=== PATIENT | female | born 1985 | race Caucasian/White ===

== ENCOUNTER → 2017-02-11 | Outpatient (CLI) | payer BC ==
[~2017-02-11] MED LIST: PRENTAB26 PO
--- NOTE | 2017-02-11 12:54 | DIAGNOSTIC IMAGING REPORT ---
LIMITED (US) CLINICAL HISTORY: CERVICAL LENGTH, THREATENED PRE MATURE LABOR,29 WKS COMPARISON STUDY: None. FINDINGS: Transabdominal and transvaginal scanning of the pelvis was performed. Slight funneling at the internal cervical os which is dilated up to 6 mm. The remaining cervical canal is closed and measures 3.6 cm in length. heart rate is 152 bpm. Femur length is 5.89 cm consistent with a 30 week and 5 day intrauterine gestation. There is anterior fundal placenta which appears unremarkable. No subchorionic hematoma. The amniotic fluid volume appears to be low. IMPRESSION: 1. heart rate is 152 bpm. 2. Slight funneling at the internal cervical os which is dilated up to 6 mm. However, the remaining cervical canal is closed and measures 3.6 cm in length. 3. There appears to be oligohydramnios. Electronically signed by: Mendoza Garrett M.D. 02/11/2017 12:52 PM Dictated Date/Time: 02/11/2017 12:49 PM
== END | disposition home or self-care (01) ==
LOC: C.ULTR 11:37
PROVIDERS: ATTEND Obstetrics & Gynecology
DX: O60.00 Preterm labor without delivery, unspecified trimester (principal)

== ENCOUNTER → 2017-04-01 | Outpatient (CLI) | payer BC | END | disposition home or self-care (01) | LOC: C.LABSPEC 16:53 | PROVIDERS: ATTEND Obstetrics & Gynecology | DX: Z34.83 Encounter for supervision of other normal pregnancy, third trimester (principal) ==

== ENCOUNTER 2017-04-15 10:55 | Inpatient (IN) | payer BC ==
[~2017-04-15] VITALS: Ht 149.9 cm; Wt 75.8 kg
[2017-04-15 11:36] VITALS: Ht 149.9 cm; Wt 75.8 kg
[2017-04-15] MEDS ORDERED: LACTATED RINGER'S 1000ML 1,000 ML IV PRN (12:02)
[2017-04-15] MEDS ORDERED: LACTATED RINGER'S 1000ML 1,000 ML IV SCH (12:02)
[2017-04-15] MEDS ORDERED: MISOPROSTOLTAB 50 MCG TAB PO ONE (12:15)
[2017-04-15 13:20] LABS: HEMATOCRIT 39.9 % (37-47); MEAN CELL VOLUME 86.6 fL (80-100); MEAN CORPUSCULAR HEMOGLOBIN 30.2 pg (25-34); MEAN CORPUSCULAR HGB CONC 34.8 g/dl (32-36); MEAN PLATELET VOLUME 13.1 fL (7.4-10.4); PLATELET COUNT 168 K/uL (130-400); RED BLOOD COUNT 4.61 M/uL (4.2-5.4); WHITE BLOOD COUNT 11.81 K/uL (4.8-10.8)
[2017-04-15] MEDS ORDERED: LACTATED RINGER'S 1000ML 500 ML IV PRN ×2 (18:07→21:09)
[2017-04-15] MEDS ORDERED: OXYTOCIN 30 UNITS/500ML NSS IV PRN (18:15)
[2017-04-15] MEDS ORDERED: BUPIVACAINE 0.25% 30 ML VIAL ONE (20:21)
[2017-04-15] MEDS ORDERED: EpHEDrine SULFATE INJ 50 MG/ML AMP ONE (20:21)
[2017-04-15] MEDS ORDERED: FENTANYL CITRATE INJ 50 MCG/1 ML 2 ML VIAL ONE (20:22)
[2017-04-15] MEDS ORDERED: FENTANYL 2MCG/ML ROPIV 1.25MG/ML 100ML BAG EPI ONE (20:22)
[2017-04-15] MEDS ORDERED: NALOXONE HCL INJ 1 MG in SODIUM CHLORIDE 0.9% 1000ML 1,000 ML IV PRN (21:09)
[2017-04-15] MEDS ORDERED: EpHEDrine SULFATE INJ 50 MG/ML AMP IV PRN (21:15)
[2017-04-15] MEDS ORDERED: NALOXONE HCL INJ 0.4 MG/1 ML VIAL/CARP IV PRN (21:15)
[2017-04-15] MEDS ORDERED: FENTANYL 2MCG/ML ROPIV 1.25MG/ML 100ML BAG EPI PRN (21:15)
[2017-04-15] MEDS ORDERED: ONDANSETRON INJ 2 MG/ML 2 ML VIAL IV PRN (21:15)
[2017-04-15] MEDS ORDERED: DiphenhydrAMINE HCL 50 MG/ML VIAL IV PRN (21:15)
[2017-04-15] MEDS ORDERED: NALBUPHINE HCL INJ 10 MG/ML AMP IV PRN (21:15)
[2017-04-16] VITALS (14 sets, daily range): BP systolic 125–152; BP diastolic 73–89; PULSE 89–111; TEMP 36.7–37.1; O2SAT 95–99
[2017-04-16] MEDS ORDERED: CITRIC ACID/SODIUM CITRATE 15 ML UDC ONE (02:18)
[2017-04-16] MEDS ORDERED: CITRIC ACID/SODIUM CITRATE 15 ML UDC PO STA (02:34)
[2017-04-16] MEDS ORDERED: CEFOXITIN IV 2,000 MG in DEXTROSE 5% 50ML 50 ML IV STA (02:34)
[2017-04-16] MEDS ORDERED: LIDOCAINE/EPINEPHRINE 2% 1:200,000 20 ML SDV ONE (02:47)
[2017-04-16] MEDS ORDERED: BUPIVACAINE 0.25% 30 ML VIAL ONE ×2 (02:47→02:50)
[2017-04-16] MEDS ORDERED: CHLOROPROCAINE HCL 3% 20 ML VIAL ONE (02:47)
[2017-04-16] MEDS ORDERED: OXYTOCIN INJ 10 UNITS/ML VIAL ONE ×2 (02:48→03:01)
[2017-04-16] MEDS ORDERED: MoRPHine SULFATE PF 1 MG/ML 10 ML AMP/VIAL ONE (02:48)
[2017-04-16] MEDS ORDERED: PHENYLEPHRINE 100MCG/ML 5ML SYR ONE ×2 (02:49→02:50)
[2017-04-16] MEDS ORDERED: SODIUM BICARBONATE 8.4% INJ 50 MEQ/50 ML VIAL ONE (02:50)
[2017-04-16] MEDS ORDERED: MEPERIDINE HCL 25 MG/ML CARP IV PRN (03:15)
[2017-04-16] MEDS ORDERED: DC INTRASPINAL MORPHINE PRN (03:15)
[2017-04-16] MEDS ORDERED: CONTINUE MEDICATION ONE (03:15)
[2017-04-16] MEDS ORDERED: MoRPHine SULFATE 2 MG/ML CARP IV PRN (03:15)
[2017-04-16] MEDS ORDERED: NO NARCOTICS OR SEDATIVES SCH (03:15)
[2017-04-16] MEDS ORDERED: MoRPHine SULFATE PF 1 MG/ML 10 ML AMP/VIAL EPI PRN (03:15)
[2017-04-16] MEDS ORDERED: MAGNESIUM HYDROXIDE SUSP 30 ML UDC PO PRN (03:45)
[2017-04-16] MEDS ORDERED: SENNA 8.6 MG TAB PO PRN (03:45)
[2017-04-16] MEDS ORDERED: HYDROCORTISONE ACETATE 25 MG SUPP PR PRN (03:45)
[2017-04-16] MEDS ORDERED: LANOLIN OINT EXT PRN ×2 (03:45)
[2017-04-16] MEDS ORDERED: SUPERCREAM 0.870 % 15GM JAR EXT PRN (03:45)
[2017-04-16] MEDS ORDERED: BENZOCAINE 20% AER SPR 82.5 GM CAN EXT PRN (03:45)
[2017-04-16] MEDS ORDERED: DIPHTHERIA/TETANUS/PERTUSSIS 0.5 ML SYR/VIAL IM. ONE (03:45)
--- NOTE | 2017-04-16 03:48 | Anesthesiology Progress Note ---
Anesthesia Post Op Note Date & Time April 16, 2017 at 03:49 Vital Signs Pain Intensity: 2.0 Notes Mental Status: alert / awake / arousable, participated in evaluation Pt Amnestic to Procedure: Yes Nausea / Vomiting: adequately controlled Pain: adequately controlled Airway Patency, RR, SpO2: stable & adequate BP & HR: stable & adequate Hydration State: stable & adequate Neuraxial Anesthesia: was administered, sensory block is resolving Anesthetic Complications: no major complications apparent
[2017-04-16] MEDS ORDERED: TERBUTALINE SULFATE 1 MG/ML VIAL ONE (04:01)
[2017-04-16] MEDS: OXYTOCIN INJ 20 UNITS in LACTATED RINGER'S 1000ML 1,000 ML IV SCH ×3 (04:08→21:10)
--- NOTE | 2017-04-16 04:11 | HISTORY & PHYSICAL EXAMINATION ---
DATE OF ADMISSION: 04/15/2017 CHIEF COMPLAINT: Toxemia of , nonreassuring heart rate tracing and arrest of labor. HISTORY OF PRESENT ILLNESS: The patient is a 31-year-old 2, para 1, general health is good. Due date for this is 04/29/2017. First , she went into spontaneous labor at 37 weeks, was in 2014. She had a boy, 5 pounds 12 ounces. Present has been complicated by the development of toxemia with sustained elevation of blood pressure and eventually development of proteinuria, been treated with bed rest, decreased activity and entered in her record. She has significant documentations of both systolic and diastolic over about a 10-day to 2-week period. Due to development of toxemia, she was admitted for induction of labor. She was brought in and given 50 mcg of Cytotec, had some contractions, eventually the contractions were augmented with IV Pitocin. She requested and received epidural anesthesia. The augmentation continued. She went to full dilatation; however, during this time, the head did not enter the pelvis, it remained high. After she went to full dilatation, we got her to push and with the first push or 2, she had a prolonged decel which required the use of terbutaline and mask oxygen and discontinuing the IV Pitocin to recover the heart rate. At this time, she was felt to have nonreassuring heart rate due to the cephalopelvic disproportion. PAST MEDICAL HISTORY: ALLERGIES: She has no known drug allergies. PAST SURGICAL HISTORY: She has a right ACL repair. MEDICAL HISTORY: No history of rheumatic fever, heart disease, heart murmur, diabetes or tuberculosis. She has a 2-year-old boy at home in good health. SOCIAL HISTORY: No smoking. No alcohol intake. Works for the school system. FAMILY HISTORY: Mom at age 51, lung cancer. Father 60, in good health. She has 2 sisters in good health. REVIEW OF SYSTEMS: HEAD: No symptoms of frequent or severe headaches. EYES: No symptoms of blurred vision, double vision. EARS: No symptoms of frequent ear infections, difficulty hearing. NOSE: No symptoms of frequent nosebleeds, difficulty breathing through her nose. THROAT: No symptoms of frequent or severe sore throat, difficulty swallowing. RESPIRATORY SYSTEM: No history of asthma, chest pain, shortness of breath. PHYSICAL EXAMINATION: GENERAL: Well-developed, well-nourished 31-year-old white female, alert and oriented x3 in intermittent episodes of discomfort. EYES: Conjunctivae are pink. Sclerae white. No evidence of jaundice. EARS: Had normal light reflex bilaterally. HEART: Regular rhythm. S1 and S2 are normal. LUNGS: Clear. ABDOMEN: Revealed term size fetus, estimated weight 7-8 pounds. PELVIC: Revealed a vertex presentation, large amount of molding about a -1 station. MUSCULOSKELETAL: Revealed no calf tenderness. IMPRESSIONS OF THIS CASE: Toxemia of , nonreassuring heart rate tracing and cephalopelvic disproportion.
[2017-04-16] MEDS: KETOROLAC TROMETHAMINE 30 MG/ML VIAL IV. PRN ×3 (05:39→19:45)
[2017-04-16] MEDS: DOCUSATE SODIUM 100 MG CAP PO SCH ×2 (08:00→19:46)
[2017-04-16] MEDS: FERROUS SULFATE 325 MG TAB PO SCH (08:00)
[2017-04-16] MEDS: PRENATAL VITAMIN TAB PO SCH (08:00)
[2017-04-16] MEDS: SIMETHICONE 80 MG CHEW PO SCH ×3 (08:53→19:46)
--- NOTE | 2017-04-16 09:36 | OPERATIVE REPORT ---
DATE OF OPERATION: 04/16/2017 PROCEDURE: Primary low segment section. INDICATIONS FOR SURGERY: Non-reassuring heart rate, toxemia, and cephalopelvic disproportion. POSTOPERATIVE DIAGNOSES: Same, nuchal cord x1 and direct occiput posterior. SURGEON: Dr. Plascencia. ENGRAVING SUPERVISOR: Dr. Johnson. ESTIMATED BLOOD LOSS: 600 mL. ANESTHESIA: Epidural. OPERATIVE FINDINGS AND PROCEDURE: The patient was brought to the OR table, correctly identified by armband and conversation. Man catheter had been inserted aseptically in the bladder and connected to gravity drainage. Compression stockings were applied. Lower abdomen was painted with an alcohol based sterilizing solution. The epidural was topped off. When the anesthesia level was found to be adequate, Pfannenstiel incision was made, carried down to the anterior fascia by sharp dissection. Hemostasis was secured by electrocauterization. Fascia was incised transversely, from the underlying muscle by blunt and sharp dissection. Recti muscles were in the midline exposing the peritoneum, which was carefully raised and entered. Incision was made above the vesicouterine fold. Bladder was advanced out of the operative field. Lower uterine segment was scored with a knife and then entered with scissors. Clear amniotic fluid was seen at this time. The infant's head was in direct OP and managed to pull him out through the incision, suctioned him through the mouth and the nose. Nuchal cord was reduced around the head. Shoulders were delivered without difficulty. Cord was clamped and cut. Cord blood was taken. Placenta was removed manually. Uterus was brought out through the incision and cleaned several times with a clean sponge. Ten units of Pitocin was injected into the uterus. The myometrium was approximated in 2 layers. The muscular layer was approximated with a continuous layer of chromic. Fascial layer was approximated over this with a continuous layer of Vicryl and three [id number] sutures of Vicryl were used on the approximated edges of the uterine defect to complete the hemostasis. Following this, peritoneal edges was restored with a running 3-0 chromic. The pelvis was cleansed of all blood clots and debris. Uterus, tubes, and ovaries were reinserted into the abdominal cavity. The peritoneum was closed with a mattress suture of chromic catgut. Recti muscles were approximated with interrupted [id number] suture of chromic catgut. The fascia was closed with continuous interlocking suture of Vicryl on each side, tied in the midline. Subcutaneous was approximated with plain and skin edges were approximated with staple clips. I attest to the content of the Intraoperative Record and any orders documented therein. Any exceptio ns are noted below.
[2017-04-16] MEDS ORDERED: DiphenhydrAMINE HCL 50 MG/ML VIAL IV PRN (20:00)
[2017-04-16] MEDS ORDERED: ZOLPIDEM TARTRATE 5 MG TAB PO PRN (21:00)
[2017-04-16] MEDS ORDERED: KETOROLAC TROMETHAMINE 30 MG/ML VIAL IV. PRN (21:00)
[2017-04-16] MEDS ORDERED: OXYCODONE/ACETAMINOPHEN 5-325 TAB PO PRN (21:00)
[2017-04-16] MEDS ORDERED: MEPERIDINE HCL 50 MG/ML CARP IV PRN ×2 (21:00)
[2017-04-16] MEDS ORDERED: ONDANSETRON INJ 2 MG/ML 2 ML VIAL IV PRN (21:00)
[2017-04-17] MEDS: IBUPROFEN 600 MG TAB PO PRN ×5 (00:16→20:53)
[2017-04-17] MEDS: OXYCODONE/ACETAMINOPHEN 5-325 TAB PO PRN ×5 (00:17→20:54)
[2017-04-17 07:32] VITALS: BP 117/77; PULSE 81; TEMP 36.6; O2SAT 99
[2017-04-17] MEDS: DOCUSATE SODIUM 100 MG CAP PO SCH ×2 (09:35→20:21)
[2017-04-17] MEDS: PRENATAL VITAMIN TAB PO SCH (09:35)
[2017-04-17] MEDS: SIMETHICONE 80 MG CHEW PO SCH ×4 (09:35→20:21)
[2017-04-17] MEDS: FERROUS SULFATE 325 MG TAB PO SCH (09:35)
--- NOTE | 2017-04-17 10:12 | Progress Note ---
Subjective April 17, 2017. Subjective conversation w/ patient Ambulation: ambulating normally Voiding: no voiding problems Passing Gas: Yes Diet Tolerance: Regular Diet Lochia: Small Feeding Type: Breast Feeding Review of Systems Constitutional: + fever Objective Vital Signs Date Time Temp Pulse Resp B/P Pulse Ox O2 Delivery O2 Flow Rate FiO2 04/17/17 08:39 Room Air 04/17/17 07:32 36.6 81 17 117/77 99 Room Air 04/16/17 23:50 Room Air 04/16/17 23:50 37.0 97 16 139/89 98 Room Air 04/16/17 19:50 18 97 04/16/17 19:50 Room Air 04/16/17 19:50 36.9 111 18 125/81 97 Room Air 04/16/17 17:00 16 97 04/16/17 16:00 97 Room Air 04/16/17 16:00 18 97 04/16/17 16:00 36.7 96 16 130/86 98 Room Air 04/16/17 15:00 16 98 04/16/17 14:00 18 98 04/16/17 13:00 16 97 04/16/17 12:00 18 97 04/16/17 12:00 36.9 89 18 126/80 97 Room Air 04/16/17 11:00 16 99 Physical Exam General Appearance: WELL-APPEARING Respiratory/Chest: lungs clear Abdomen: non tender, soft Fundus: Firm, Non-Tender Incision Description: Clean, Dry & Intact Extremities: no pedal edema, no calf tenderness Assessment and Plan Post-Op Day#: 1
[2017-04-17 16:00] VITALS: BP 142/79; PULSE 95; TEMP 36.7
[2017-04-17 17:00] VITALS: O2SAT 99
[2017-04-17] MEDS ORDERED: BISACODYL 5 MG TABEC PO ONE (22:00)
[2017-04-17 23:50] VITALS: BP 136/88; PULSE 92; TEMP 36.8
[2017-04-18] MEDS: IBUPROFEN 600 MG TAB PO PRN ×2 (02:47→09:36)
[2017-04-18] MEDS: OXYCODONE/ACETAMINOPHEN 5-325 TAB PO PRN ×2 (02:47→09:36)
[2017-04-18] MEDS ORDERED: BISACODYL 10 MG SUPP PR PRN (03:45)
[2017-04-18 06:39] LABS: HEMATOCRIT 30.2 % (37-47)
[2017-04-18 07:09] VITALS: BP 143/96; PULSE 78; TEMP 36.4; O2SAT 99
--- NOTE | 2017-04-18 08:49 | Progress Note ---
Subjective April 18, 2017. Subjective conversation w/ patient Ambulation: ambulating normally Voiding: no voiding problems Passing Gas: Yes Diet Tolerance: Regular Diet Lochia: Small Feeding Type: Breast Feeding Review of Systems Constitutional: + fever Objective Vital Signs Date Time Temp Pulse Resp B/P Pulse Ox O2 Delivery O2 Flow Rate FiO2 04/18/17 07:50 Room Air 04/18/17 07:09 36.4 78 18 143/96 99 Room Air 04/17/17 23:50 Room Air 04/17/17 23:50 36.8 92 18 136/88 Room Air 04/17/17 17:00 99 Room Air 04/17/17 16:00 36.7 95 16 142/79 Room Air Physical Exam General Appearance: WELL-APPEARING Abdomen: non tender Fundus: Firm, Non-Tender Incision Description: Clean, Dry & Intact Extremities: no pedal edema, no calf tenderness Laboratory Results Last 24 Hours Test 04/18/17 06:00 Hemoglobin 10.1 g/dL Hematocrit 30.2 % Assessment and Plan Post-Op Day#: 2
--- NOTE | 2017-04-18 08:52 | Discharge Instructions ---
Discharge Instructions Date of Service April 18, 2017. Admission Reason for Admission: Prolonged Monitoring - R/O h Discharge Discharge Diagnosis / Problem: cephalopelvic disproportion Discharge Goals Goal(s): Routine recovery after Activity Recommendations Activity Limitations: as noted below ACTIVITY RECOMMENDATIONS: * Gradual return to full activity over the next 2-3 weeks. * No lifting - nothing heavier than baby over the next 2-3 weeks. * Do not engage in vigorous exercise, sexual activity or sports for 6 weeks. * Do not drive or operate any motorized equipment for 14 days. * You may shower/bathe daily. DIET: Resume Previous Diet If Breast-feeding: * Increase caloric intake by 500 calories, eat 3 well balanced meals, 2 high protein snacks a day and drink 6-8 8oz. glasses of fluid per day. BREAST CARE: If you are not breast feeding: * Wear a supportive bra 24 hours a day for one to two weeks. * Avoid stimulating your breasts and nipples as much as possible during the first few weeks after delivery. * When taking a shower, have the warm water hit your back, not breasts. * When your breasts feel full, apply ice packs. Usually three to four times a day helps ease the discomfort. * Take a mild pain medication (Tylenol / Motrin) when you are uncomfortable. If breast feeding: * Use breast milk to lubricate nipples. Lansinoh cream may be used for sore nipples. You do not need to remove cream prior to breast feeding. If using a different brand of cream, check the label for directions regarding removal of cream prior to nursing. * Wear a supportive bra. * If having problems with breasts or breast feeding, call a ada accommodation consultant or your health care provider. VITAMINS: * One tablet daily. Continue taking while or until you have your check up in 6 weeks. SPECIAL CARE INSTRUCTIONS: * Vaginal rest (no tampons, douching, intercourse) until after doctor's visit. * control as discussed with doctor. * Verbalizes understanding of car seat law as reviewed with patient by nursing. * Car Seat hand-out given and reviewed with patient by nursing. * Shaken baby information reviewed with patient by nursing. Call you doctor if: * Heavy bleeding (saturating a pad an hour) or passing clots the size of your fist. Bleeding has a foul smelling odor. * A fever greater than 100.4 degrees F (38 degrees C) on two occasions four hours apart and/or chills. * Unusual pain in the pelvic or vaginal areas. Pain should improve each day . * Call the doctor for any increased redness, drainage or swelling around the incision and any pain unrelieved by prescribed pain medication. * Signs and symptoms of phlebitis(possible blood clots forming in the veins): leg pain, warm, red or swollen area on leg. * "Baby Blues" lasting longer than two weeks. If you have any questions or concerns, call your health care practitioner at [phone]. FOLLOW-UP VISIT: Follow-up visit for examination in 6 weeks. Incision check (staple removal) in 1 week. Please call office at [phone] if not already scheduled. . Instructions / Follow-Up Instructions / Follow-Up ACTIVITY RECOMMENDATIONS: * Gradual return to full activity over the next 2-3 weeks. * No lifting - nothing heavier than baby over the next 2-3 weeks. * Do not engage in vigorous exercise, sexual activity or sports for 6 weeks. * Do not drive or operate any motorized equipment for 14 days. * You may shower/bathe daily. DIET: Resume Previous Diet If Breast-feeding: * Increase caloric intake by 500 calories, eat 3 well balanced meals, 2 high protein snacks a day and drink 6-8 8oz. glasses of fluid per day. BREAST CARE: If you are not breast feeding: * Wear a supportive bra 24 hours a day for one to two weeks. * Avoid stimulating your breasts and nipples as much as possible during the first few weeks after delivery. * When taking a shower, have the warm water hit your back, not breasts. * When your breasts feel full, apply ice packs. Usually three to four times a day helps ease the discomfort. * Take a mild pain medication (Tylenol / Motrin) when you are uncomfortable. If breast feeding: * Use breast milk to lubricate nipples. Lansinoh cream may be used for sore nipples. You do not need to remove cream prior to breast feeding. If using a different brand of cream, check the label for directions regarding removal of cream prior to nursing. * Wear a supportive bra. * If having problems with breasts or breast feeding, call a ada accommodation consultant or your health care provider. VITAMINS: * One tablet daily. Continue taking while or until you have your check up in 6 weeks. SPECIAL CARE INSTRUCTIONS: * Vaginal rest (no tampons, douching, intercourse) until after doctor's visit. * control as discussed with doctor. * Verbalizes understanding of car seat law as reviewed with patient by nursing. * Car Seat hand-out given and reviewed with patient by nursing. * Shaken baby information reviewed with patient by nursing. Call you doctor if: * Heavy bleeding (saturating a pad an hour) or passing clots the size of your fist. Bleeding has a foul smelling odor. * A fever greater than 100.4 degrees F (38 degrees C) on two occasions four hours apart and/or chills. * Unusual pain in the pelvic or vaginal areas. Pain should improve each day . * Call the doctor for any increased redness, drainage or swelling around the incision and any pain unrelieved by prescribed pain medication. * Signs and symptoms of phlebitis(possible blood clots forming in the veins): leg pain, warm, red or swollen area on leg. * "Baby Blues" lasting longer than two weeks. If you have any questions or concerns, call your health care practitioner at [phone]. FOLLOW-UP VISIT: Follow-up visit for examination in 6 weeks. Incision check (staple removal) in 1 week. Please call office at [phone] if not already scheduled. Current Hospital Diet Patient's current hospital diet: Regular OB Diet Discharge Diet Recommended Diet: Regular Diet Procedures Procedures Performed: Primary caesarean section Lower transerve uterine incision Pending Studies Studies pending at discharge: no Medical Emergencies . Who to Call and When: Medical Emergencies: If at any time you feel your situation is an emergency, please call 911 immediately. . Non-Emergent Contact Non-Emergency issues call your: Manufacturing Engineer Call Non-Emergent contact if: temperature is above 100.5 . . "Provider Documentation" section prepared by Favian Plascencia. . VTE Core Measure Inpt VTE Proph given/why not?: Treatment not indicated
--- NOTE | 2017-04-18 09:12 | DISCHARGE SUMMARY ---
HISTORY AND HOSPITAL COURSE: She was admitted from the office with a history of hypertension over a period of about 10 days and diastolics in the office as high as 100, and she began to spill proteinuria because of worsening hypoxemia which was unresponsive to decreased activity level. She was admitted for induction. She essentially went to full dilatation and after using a series of Cytotec tablets and Pitocin and also epidural, went to full dilatation. The head did not drop. In fact, the head did not enter the pelvis, started to push, began to have decelerations with the pushing. Basically, it was discontinued. She was given terbutaline ,oxygen, and taken to the OR where she underwent primary low segment section due to nonreassuring heart rate tracing and cephalopelvic disproportion. The essentially weight over a pound more than her previous vaginal delivery. Postoperatively, the patient did well. She remained afebrile. Bowel sounds returned within about 24 hours. Her preoperative hemoglobin was 13.9, hematocrit 39.9. Postoperatively, hemoglobin was 10.1, hematocrit 30.2. At the time of discharge, she was ambulating well, eating well, incision was clean and dry, she had good bowel sounds and pain was well controlled with a combination of Percocet and Motrin. She was told to return to the office in a week for removal of griffin. MATEO
[2017-04-18] MEDS: PRENATAL VITAMIN TAB PO SCH (09:34)
[2017-04-18] MEDS: FERROUS SULFATE 325 MG TAB PO SCH (09:34)
[2017-04-18] MEDS: DOCUSATE SODIUM 100 MG CAP PO SCH (09:34)
[2017-04-18] MEDS: SIMETHICONE 80 MG CHEW PO SCH (09:34)
[2017-04-18 15:40] VITALS: BP_DIAS 96; PULSE 78; TEMP 36.4
== END 2017-04-18 15:52 | disposition home or self-care (01) | DRG 766 ==
LOC: C.OPB 10:55 → C.LD 10:55 → C.OPB 12:21 → C.LD 12:30 → C.OBG 04-16 06:05
PROVIDERS: ADMIT Obstetrics & Gynecology; ATTEND Obstetrics & Gynecology
PROC: 10D00Z1 Extraction of Products of Conception, Low, Open Approach (ICD-10-PCS; principal; 2017-04-16 02:14)
DX: O65.4 Obstructed labor due to fetopelvic disproportion, unspecified (principal); O14.94 Unspecified pre-eclampsia, complicating childbirth; O76 Abnormality in fetal heart rate and rhythm complicating labor and delivery; O66.40 Failed trial of labor, unspecified; O69.81X0 Labor and delivery complicated by cord around neck, without compression, not applicable or unspecified; Z3A.38 38 weeks gestation of pregnancy; Z37.0 Single live birth

== ENCOUNTER → 2017-06-06 | Outpatient (CLI) | payer BC | END | disposition home or self-care (01) | LOC: C.PAPS 16:21 | PROVIDERS: ATTEND Obstetrics & Gynecology | DX: Z39.2 Encounter for routine postpartum follow-up (principal) ==

== ENCOUNTER 2019-04-20 02:07 | Inpatient (IN) ==
[2019-04-20 03:23] LABS: Hematocrit (blood only) 35.3 % (37-47); Hemoglobin 12.6 g/dL (12.0-16.0); Mean Corpuscular Volume 82.7 fL (80-100); Mean Platelet Volume 12.4 fL (7.4-10.4); Platelet Count 157 K/uL (130-400); RDW Coefficient of Variation 12.7 % (11.5-14.5); RDW Standard Deviation 38.1 fL (36.4-46.3); Red Blood Count 4.27 M/uL (4.2-5.4); White Blood Count 10.96 K/uL (4.8-10.8)
[2019-04-20 03:24] LABS: Mean Corpuscular Hgb Conc 35.7 g/dL (32-36)
[2019-04-20] MEDS: LACTATED RINGER'S 1,000 ML IV PRN ×5 (03:30→17:29)
[2019-04-20] MEDS ORDERED: ACETAMINOPHEN 500 MG TAB PO STA (06:07)
[2019-04-20] MEDS ORDERED: ACETAMINOPHEN 500 MG TAB ONE (06:10)
[2019-04-20] MEDS ORDERED: BUPIVACAINE 0.25% 30 ML VIAL ONE ×2 (10:00→18:02)
[2019-04-20] MEDS ORDERED: ePHEDrine sulfate 50 MG/ML AMP ONE (10:00)
[2019-04-20] MEDS ORDERED: fentaNYL citrate 100 MCG/2 ML VIAL ONE ×2 (10:01→18:02)
[2019-04-20] MEDS ORDERED: fentaNYL 2MCG/ML ROPIV 1.25MG/ML 100 ML BAG EPI ONE (10:01)
--- NOTE | 2019-04-20 10:02 | Progress Note ---
Date of Service April 20, 2019 Subjective Pt signed out to me by Dr Justice Pt is a pt of Dr Plascencia. she is a adeola and came into hospital this Am with SROM. she was seen by Dr. Justice and after discussion she agreed to try I have met pt and discussed risk ,benefit of repeat c/sec and with pt and spouse. I have made it clear to them , they can have a c/sec if that is whart they want or proceed with trial of After discussion, they have both agreed to proceed with they understand, that using Pitocin augmentation increases the risk of uterine rapture plan Epidural analgesia scalp placement will use Pitocin augmentation when I find necessary Results & Data Vital Signs (Past 12 Hours) Vital Signs Temp Pulse Resp BP 04/20/19 09:00 36.7 C 18 04/20/19 07:08 36.7 C 16 04/20/19 06:59 84 138/73 04/20/19 06:11 18 04/20/19 06:05 36.9 C 18 04/20/19 05:46 86 142/84 H 04/20/19 04:30 36.9 C 18 04/20/19 02:27 37.1 C 78 18 147/77 H 04/20/19 02:24 72 143/70 H
--- NOTE | 2019-04-20 10:29 | Anesthesiology Consultation ---
Date of Service April 20, 2019 Assessment & Plan (1) Encounter for pre-operative examination: Chart Review Chart Review: Patient NOT seen in Pre Admission Testing and Acceptable Risk for Labor Epidural Consults Requested none History Height/Weight Height: 4 ft 10 in Weight: 74.843 kg Allergies Allergy/AdvReac Type Severity Reaction Status Date / Time No Known Allergies Allergy Verified 04/10/19 11:32 Medications Home Medications Medication Instructions Recorded Confirmed Last Taken vit-iron fum-folic ac 2 tab PO QAM 03/14/19 04/20/19 04/19/19 12:00 [ Vitamin] Active Medications Generic Name Dose Route Start Last Admin Trade Name Freq PRN Reason Stop Dose Admin Lactated Ringer's 1,000 mls @ 125 mls/hr 04/20/19 02:51 04/20/19 10:28 Lr IV 04/22/19 02:50 999 mls/hr .Q8H PRN Administration L&D Protocol Protocol Past Medical History Medical History History of high blood pressure WITH PREVIOUS , INDUCED AT 38 WEEKS. WAS ON ASA 81mg UNTIL 36 WEEKS WITH CURRENT Nausea and vomiting after administration of anesthetic agent AFTER PREVIOUS C/S Past Family History Family History Mother Family history of lung cancer Past Surgical History Surgical History H/O knee surgery 2005 - ACL LEFT Hx of section 2017 [place] teeth extracted 2008 Social History Smoking Status: Never smoker Hx Alcohol Use: No Hx Substance Use: No substance use type: does not use Physical Exam Vital Signs Last Vital Signs Temp 36.7 C 04/20/19 09:00 Pulse 72 04/20/19 10:27 Resp 18 04/20/19 09:00 BP 138/73 04/20/19 06:59 Pulse Ox 99 04/20/19 10:27 Testing Other Testing WBC 10.96 Hgb 12.6 Plt 157
[2019-04-20] MEDS ORDERED: NALOXONE HCL 0.4 MG/1 ML VIAL/CARP IV PRN (10:46)
[2019-04-20] MEDS ORDERED: ONDANSETRON INJ 2 MG/ML 2 ML VIAL IV PRN (10:46)
[2019-04-20] MEDS ORDERED: NALOXONE HCL 1 MG in SODIUM CHLORIDE 0.9% 1000ML 1,000 ML IV PRN (10:46)
[2019-04-20] MEDS ORDERED: ePHEDrine sulfate 50 MG/ML AMP IV PRN (10:46)
[2019-04-20] MEDS ORDERED: DiphenhydrAMINE HCL 50 MG/ML VIAL IV PRN (10:46)
[2019-04-20] MEDS ORDERED: NALBUPHINE HCL INJ 10 MG/ML AMP IV PRN (10:46)
[2019-04-20] MEDS ORDERED: fentaNYL 2MCG/ML ROPIV 1.25MG/ML 100 ML BAG EPI PRN (10:46)
--- NOTE | 2019-04-20 11:58 | Labor Progress Brief Note ---
Date of Service April 20, 2019 Pt doing well Epidural analgesia in place FHR; CAT1 Ctx; minimal VE 4/50/-2 SROM at 01;00 No abdominal tenderness, fever, foul odor /disch scalp and IUPC placed without difficulty Results & Data Vital Signs (Past 12 Hours) Vital Signs Temp Pulse Resp BP Pulse Ox 04/20/19 11:52 91 H 98 04/20/19 11:47 92 H 98 04/20/19 11:42 87 98 04/20/19 11:38 93 H 141/70 H 04/20/19 11:37 92 H 98 04/20/19 11:36 93 H 144/72 H 04/20/19 11:34 99 H 142/68 H 04/20/19 11:32 100 H 145/70 H 98 04/20/19 11:31 101 H 137/75 04/20/19 11:28 85 129/67 04/20/19 11:27 89 97 04/20/19 11:26 86 138/73 04/20/19 11:24 82 137/69 04/20/19 11:22 91 H 139/70 98 04/20/19 11:20 85 140/66 04/20/19 11:18 90 137/63 04/20/19 11:17 93 H 99 04/20/19 11:16 89 135/67 04/20/19 11:14 93 H 146/76 H 04/20/19 11:12 91 H 139/72 99 04/20/19 11:10 91 H 18 143/77 H 04/20/19 11:09 89 18 144/89 H 04/20/19 11:07 98 H 99 04/20/19 11:06 94 H 141/67 H 04/20/19 11:04 99 H 18 141/69 H 04/20/19 11:02 100 H 145/72 H 99 04/20/19 11:00 109 H 150/80 H 04/20/19 10:58 108 H 153/68 H 04/20/19 10:57 101 H 99 04/20/19 10:56 110 H 151/84 H 04/20/19 10:54 103 H 142/70 H 04/20/19 10:52 103 H 142/68 H 98 04/20/19 10:50 98 H 18 130/65 04/20/19 10:48 106 H 153/80 H 04/20/19 10:47 100 H 98 04/20/19 10:46 86 152/69 H 04/20/19 10:44 93 H 156/70 H 04/20/19 10:42 109 H 155/70 H 98 04/20/19 10:39 112 H 89 L 04/20/19 10:37 101 H 99 04/20/19 10:32 86 158/86 H 98 04/20/19 10:30 36.5 C 18 04/20/19 10:27 72 99 04/20/19 10:22 87 98 04/20/19 10:17 82 99 04/20/19 10:12 88 98 04/20/19 10:07 76 97 04/20/19 09:00 36.7 C 18 04/20/19 07:08 36.7 C 16 04/20/19 06:59 84 138/73 04/20/19 06:11 18 04/20/19 06:05 36.9 C 18 04/20/19 05:46 86 142/84 H 04/20/19 04:30 36.9 C 18 04/20/19 02:27 37.1 C 78 18 147/77 H 04/20/19 02:24 72 143/70 H
[2019-04-20 12:21] LABS: Albumin Level 2.5 gm/dl (3.4-5.0); BUN Creatinine Ratio 7.3 (10-20); Calcium 8.8 mg/dl (8.5-10.1); Creatinine Clr Calc Pharmacy 121.9 ml/min; Est GFR (African American) 142.2; Est GFR (Non-African American) 122.7; Potassium 3.6 mmol/L (3.5-5.1)
[2019-04-20 12:24] LABS: Albumin Globulin Ratio 0.7 (0.9-2); Bilirubin,Total 0.2 mg/dl (0.2-1); Globulin 3.7 gm/dl (2.5-4.0); Total Protein 6.2 gm/dl (6.4-8.2)
[2019-04-20] MEDS ORDERED: CALCIUM CARBONATE 500 MG CHEWABLE TAB PO PRN (12:36)
--- NOTE | 2019-04-20 14:03 | Labor Progress Brief Note ---
Date of Service April 20, 2019 Doing well FHR; CAT1 ctx 3-6min Pt is having her bladder cath Nurse will examine pt after cath and will consider Pitocin augmentation pt agrees to Pitocin augmentation Results & Data Vital Signs (Past 12 Hours) Vital Signs Temp Pulse Resp BP Pulse Ox 04/20/19 13:57 94 H 98 04/20/19 13:55 100 H 120/64 04/20/19 13:52 85 98 04/20/19 13:47 92 H 97 04/20/19 13:42 89 97 04/20/19 13:40 90 115/57 L 04/20/19 13:37 91 H 97 04/20/19 13:32 90 97 04/20/19 13:27 90 98 04/20/19 13:25 83 18 120/62 04/20/19 13:22 91 H 97 04/20/19 13:17 82 97 04/20/19 13:12 87 96 04/20/19 13:10 90 121/59 L 04/20/19 13:07 86 97 04/20/19 13:02 85 97 04/20/19 12:57 79 97 04/20/19 12:55 85 119/59 L 04/20/19 12:52 84 96 04/20/19 12:47 83 98 04/20/19 12:42 81 97 04/20/19 12:40 80 122/65 04/20/19 12:37 87 97 04/20/19 12:32 80 98 04/20/19 12:31 36.9 C 18 04/20/19 12:27 87 98 04/20/19 12:22 90 98 04/20/19 12:17 87 98 04/20/19 12:12 85 98 04/20/19 12:10 85 131/59 L 04/20/19 12:07 92 H 98 04/20/19 12:02 94 H 98 04/20/19 11:57 91 H 97 04/20/19 11:55 95 H 18 145/63 H 04/20/19 11:52 91 H 98 04/20/19 11:47 92 H 98 04/20/19 11:42 87 98 04/20/19 11:38 93 H 141/70 H 04/20/19 11:37 92 H 98 04/20/19 11:36 93 H 144/72 H 0520 11:34 99 H 142/68 H 0520 11:32 100 H 145/70 H 98 05/20 11:31 101 H 137/75 0520 11:28 85 129/67 05/20/ 11:27 89 97 05/20 11:26 86 138/73 05/20 11:24 82 137/69 05/20 11:22 91 H 139/70 98 0520 11:20 85 140/66 0520 11:18 90 137/63 0520 11:17 93 H 99 0520 11:16 89 135/67 05/20 11:14 93 H 146/76 H 05 11:12 91 H 139/72 99 05 11:10 91 H 18 143/77 H 05 11:09 89 18 144/89 H 04/20/19 11:07 98 H 99 04/20/19 11:06 94 H 141/67 H 05 11:04 99 H 18 141/69 H 05 11:02 100 H 145/72 H 99 05 11:00 109 H 150/80 H 05 10:58 108 H 153/68 H 05 10:57 101 H 99 0520 10:56 110 H 151/84 H 05 10:54 103 H 142/70 H 0520 10:52 103 H 142/68 H 98 0520 10:50 98 H 18 130/65 0520 10:48 106 H 153/80 H 0520 10:47 100 H 98 05/20 10:46 86 152/69 H 0520 10:44 93 H 156/70 H 0520 10:42 109 H 155/70 H 98 0520 10:39 112 H 89 L 0520 10:37 101 H 99 0520 10:32 86 158/86 H 98 05/20/ 10:30 36.5 C 18 05 10:27 72 99 05 10:22 87 98 0520 10:17 82 99 04/20/19 10:12 88 98 04/20/19 10:07 76 97 04/20/19 09:00 36.7 C 18 04/20/19 07:08 36.7 C 16 04/20/19 06:59 84 138/73 04/20/19 06:11 18 04/20/19 06:05 36.9 C 18 04/20/19 05:46 86 142/84 H 04/20/19 04:30 36.9 C 18 04/20/19 02:27 37.1 C 78 18 147/77 H 04/20/19 02:24 72 143/70 H
[2019-04-20] MEDS: OXYTOCIN 30 UNITS/500 ML BAG IV PRN ×2 (14:22→20:20)
[2019-04-20] MEDS ORDERED: Nursing to Pharmacy Communication ONE (15:59)
--- NOTE | 2019-04-20 18:33 | Labor Progress Brief Note ---
Date of Service April 20, 2019 PT is attempting FHR ; CAT II strip is improved with position change Pit; 1mu ctx 1-3mins VE; 8cm/0 station Pt has pain on and off even with epidural will continue to monitor Results & Data Vital Signs (Past 12 Hours) Vital Signs Temp Pulse Resp BP Pulse Ox 04/20/19 18:27 105 H 93 04/20/19 18:26 97 H 87 L 04/20/19 18:22 94 H 125/60 98 04/20/19 18:20 92 H 129/67 86 L 04/20/19 18:17 86 90 04/20/19 18:15 93 H 132/58 L 04/20/19 18:12 88 135/74 95 04/20/19 18:11 84 87 L 04/20/19 18:07 87 168/100 H 94 04/20/19 18:02 88 95 04/20/19 17:57 92 H 98 04/20/19 17:52 36.8 C 110 H 18 97 04/20/19 17:47 90 135/70 94 04/20/19 17:42 90 98 04/20/19 17:37 107 H 98 04/20/19 17:33 101 H 140/67 04/20/19 17:32 109 H 99 04/20/19 17:27 106 H 99 04/20/19 17:26 97 H 87 L 04/20/19 17:22 98 H 99 04/20/19 17:17 102 H 131/74 98 04/20/19 17:16 99 H 87 L 04/20/19 17:12 93 H 99 04/20/19 17:07 89 97 04/20/19 17:04 85 127/68 04/20/19 17:02 108 H 98 04/20/19 16:57 97 H 98 04/20/19 16:53 87 91 04/20/19 16:52 97 H 98 04/20/19 16:49 83 133/88 04/20/19 16:47 121 H 97 04/20/19 16:42 100 H 97 04/20/19 16:37 96 H 98 04/20/19 16:32 109 H 97 04/20/19 16:29 36.9 C 18 04/20/19 16:27 103 H 130/69 98 04/20/19 16:23 91 H 159/85 H 05 16:22 90 98 05 16:18 87 162/77 H 04/20/19 16:17 87 98 04/20/19 16:13 77 164/78 H 04/20/19 16:12 85 97 04/20/19 16:07 94 H 99 04/20/19 16:05 86 158/91 H 04/20/19 16:02 80 98 04/20/19 15:57 82 98 04/20/19 15:56 93 H 145/105 H 04/20/19 15:52 91 H 99 04/20/19 15:47 83 99 04/20/19 15:42 87 100 05 15:41 81 18 131/67 04/20/19 15:37 92 H 99 04/20/19 15:32 90 98 04/20/19 15:27 89 99 04/20/19 15:26 86 126/58 L 04/20/19 15:22 79 98 04/20/19 15:17 78 98 04/20/19 15:12 92 H 98 04/20/19 15:10 78 131/58 L 04/20/19 15:07 88 99 04/20/19 15:02 89 98 04/20/19 14:57 89 99 04/20/19 14:55 83 120/57 L 04/20/19 14:52 81 98 04/20/19 14:47 81 98 04/20/19 14:42 82 98 04/20/19 14:41 80 18 122/56 L 04/20/19 14:37 73 98 04/20/19 14:32 80 99 05 14:27 90 97 04/20/19 14:25 97 H 140/79 05 14:24 36.9 C 88 18 131/75 05 14:22 91 H 98 04/20/19 14:17 90 98 04/20/19 14:12 97 H 98 04/20/19 14:10 93 H 116/58 L 04/20/19 14:07 91 H 98 05 14:02 94 H 98 04/20/19 13:57 94 H 98 05 13:55 100 H 18 120/64 05 13:52 85 98 05 13:47 92 H 97 05 13:42 89 97 05 13:40 90 115/57 L 04/20/19 13:37 91 H 97 04/20/19 13:32 90 97 05 13:27 90 98 04/20/19 13:25 83 18 120/62 05 13:22 91 H 97 04/20/19 13:17 82 97 05 13:12 87 96 05 13:10 90 121/59 L 04/20/19 13:07 86 97 04/20/19 13:02 85 97 04/20/19 12:57 79 97 04/20/19 12:55 85 16 119/59 L 04/20/19 12:52 84 96 04/20/19 12:47 83 98 04/20/19 12:42 81 97 04/20/19 12:40 80 122/65 05 12:37 87 97 04/20/19 12:32 80 98 04/20/19 12:31 36.9 C 18 04/20/19 12:27 87 98 04/20/19 12:22 90 98 04/20/19 12:17 87 98 04/20/19 12:12 85 98 04/20/19 12:10 85 16 131/59 L 04/20/19 12:07 92 H 98 04/20/19 12:02 94 H 98 04/20/19 11:57 91 H 97 04/20/19 11:55 95 H 18 145/63 H 04/20/19 11:52 91 H 98 04/20/19 11:47 92 H 98 04/20/19 11:42 87 98 04/20/19 11:38 93 H 16 141/70 H 04/20/19 11:37 92 H 98 04/20/19 11:36 93 H 16 144/72 H 04/20/19 11:34 99 H 16 142/68 H 05 11:32 100 H 16 145/70 H 98 04/20/19 11:31 101 H 16 137/75 05 11:28 85 16 129/67 05 11:27 89 97 05 11:26 86 138/73 05/20/ 11:24 82 18 137/69 05/20/19 11:22 91 H 18 139/70 98 05/20/ 11:20 85 140/66 05/20/ 11:18 90 18 137/63 0520/ 11:17 93 H 99 20 11:16 89 135/67 0520/ 11:14 93 H 146/76 H 05 11:12 91 H 18 139/72 99 04/20/19 11:10 91 H 18 143/77 H 0520 11:09 89 18 144/89 H 05 11:07 98 H 99 04/20/19 11:06 94 H 141/67 H 05 11:04 99 H 18 141/69 H 05 11:02 100 H 18 145/72 H 99 04/20/19 11:00 109 H 150/80 H 05 10:58 108 H 153/68 H 05 10:57 101 H 99 04/20/19 10:56 110 H 151/84 H 05 10:54 103 H 142/70 H 05/ 10:52 103 H 142/68 H 98 05/ 10:50 98 H 18 130/65 05/ 10:48 106 H 153/80 H 04/20/ 10:47 100 H 98 /20/ 10:46 86 152/69 H 0520/ 10:44 93 H 156/70 H 0520/ 10:42 109 H 155/70 H 98 05/20/ 10:39 112 H 89 L 04/20/19 10:37 101 H 99 05/ 10:32 86 158/86 H 98 05/20/ 10:30 36.5 C 18 05/20/ 10:27 72 99 05/20/ 10:22 87 98 05/20/ 10:17 82 99 05/20/ 10:12 88 98 05/20/ 10:07 76 97 05/20/ 09:00 36.7 C 18 0520/ 07:08 36.7 C 16 05/20/ 06:59 84 138/73
[2019-04-20] MEDS ORDERED: METHYLERGONOVINE MALEATE 0.2 MG/ML AMP ONE (19:30)
[2019-04-20 20:02] LABS: Base Excess Cord Arterial Bld -1.3 mEq/L (-9-1.8); CO2 Cord Arterial Blood 55 mmHg (39.1-73.5); HCO3 Cord Arterial Blood 27 mmol/L (19.7-28.5)
[2019-04-20 20:09] LABS: Base Excess Cord Venous Blood -2.7 mEq/L (-7.7-1.9); Cord Venous Blood HCO3 21 mmol/L (18.4-26.8); Cord Venous Blood PCO2 34 mmHg (30.4-57.2); Cord Venous Blood PO2 30 mmHg (14.1-43.3); Cord Venous Blood pH 7.41 (7.20-7.44)
--- NOTE | 2019-04-20 20:22 | Anesthesia Procedure Note ---
Date of Service April 20, 2019 Anesthesia Post Epidural Note Vital Signs Vital Signs: Temp Pulse Resp BP Pulse Ox 04/20/19 20:11 96 H 152/75 H 04/20/19 19:56 90 143/66 H 04/20/19 19:41 92 H 140/67 04/20/19 19:38 95 H 140/64 04/20/19 19:32 87 139/63 98 04/20/19 19:31 175/120 H 04/20/19 19:27 97 H 98 04/20/19 19:22 99 H 99 04/20/19 19:17 37.2 C 103 H 20 100 04/20/19 19:12 104 H 98 04/20/19 19:09 88 144/74 H 04/20/19 19:07 94 H 96 04/20/19 19:02 85 97 04/20/19 18:57 95 H 100 04/20/19 18:53 88 138/81 04/20/19 18:52 90 99 04/20/19 18:47 87 99 04/20/19 18:42 90 98 04/20/19 18:39 87 20 136/71 04/20/19 18:37 94 H 90 04/20/19 18:32 97 H 86 L 04/20/19 18:27 105 H 93 04/20/19 18:26 97 H 87 L 04/20/19 18:22 94 H 125/60 98 04/20/19 18:20 92 H 129/67 86 L 04/20/19 18:17 86 90 04/20/19 18:15 93 H 132/58 L 04/20/19 18:12 88 135/74 95 04/20/19 18:11 84 87 L 04/20/19 18:07 87 168/100 H 94 04/20/19 18:02 88 95 04/20/19 17:57 92 H 98 04/20/19 17:52 36.8 C 110 H 18 97 04/20/19 17:47 90 135/70 94 04/20/19 17:42 90 98 04/20/19 17:37 107 H 98 04/20/19 17:33 101 H 140/67 04/20/19 17:32 109 H 99 04/20/19 17:27 106 H 99 04/20/19 17:26 97 H 87 L 04/20/19 17:22 98 H 99 05 17:17 102 H 131/74 98 05 17:16 99 H 87 L 05 17:12 93 H 99 05 17:07 89 97 0520 17:04 85 127/68 05 17:02 108 H 98 05 16:57 97 H 98 04/20/19 16:53 87 91 05 16:52 97 H 98 05 16:49 83 133/88 05 16:47 121 H 97 04/20/19 16:42 100 H 97 04/20/19 16:37 96 H 98 04/20/19 16:32 109 H 97 04/20/19 16:29 36.9 C 18 04/20/19 16:27 103 H 130/69 98 05 16:23 91 H 159/85 H 04/20/19 16:22 90 98 04/20/19 16:18 87 162/77 H 04/20/19 16:17 87 98 04/20/19 16:13 77 164/78 H 04/20/19 16:12 85 97 04/20/19 16:07 94 H 99 04/20/19 16:05 86 158/91 H 04/20/19 16:02 80 98 05 15:57 82 98 05 15:56 93 H 145/105 H 04/20/19 15:52 91 H 99 04/20/19 15:47 83 99 05 15:42 87 100 05 15:41 81 18 131/67 05 15:37 92 H 99 05 15:32 90 98 05 15:27 89 99 05 15:26 86 126/58 L 04/20/19 15:22 79 98 05 15:17 78 98 05 15:12 92 H 98 04/20/19 15:10 78 131/58 L 05 15:07 88 99 05 15:02 89 98 05 14:57 89 99 05 14:55 83 120/57 L 05 14:52 81 98 05 14:47 81 98 04/20/19 14:42 82 98 05 14:41 80 18 122/56 L 04/20/19 14:37 73 98 04/20/19 14:32 80 99 04/20/19 14:27 90 97 04/20/19 14:25 97 H 140/79 04/20/19 14:24 36.9 C 88 18 131/75 04/20/19 14:22 91 H 98 04/20/19 14:17 90 98 04/20/19 14:12 97 H 98 04/20/19 14:10 93 H 116/58 L 04/20/19 14:07 91 H 98 04/20/19 14:02 94 H 98 04/20/19 13:57 94 H 98 04/20/19 13:55 100 H 18 120/64 05 13:52 85 98 04/20/19 13:47 92 H 97 04/20/19 13:42 89 97 04/20/19 13:40 90 115/57 L 04/20/19 13:37 91 H 97 04/20/19 13:32 90 97 04/20/19 13:27 90 98 04/20/19 13:25 83 18 120/62 04/20/19 13:22 91 H 97 04/20/19 13:17 82 97 04/20/19 13:12 87 96 04/20/19 13:10 90 121/59 L 04/20/19 13:07 86 97 04/20/19 13:02 85 97 04/20/19 12:57 79 97 05 12:55 85 16 119/59 L 04/20/19 12:52 84 96 04/20/19 12:47 83 98 04/20/19 12:42 81 97 04/20/19 12:40 80 122/65 05 12:37 87 97 04/20/19 12:32 80 98 05 12:31 36.9 C 18 04/20/19 12:27 87 98 05 12:22 90 98 04/20/19 12:17 87 98 05 12:12 85 98 04/20/19 12:10 85 16 131/59 L 05 12:07 92 H 98 0520 12:02 94 H 98 0520 11:57 91 H 97 05 11:55 95 H 18 145/63 H 05 11:52 91 H 98 04/20/19 11:47 92 H 98 05 11:42 87 98 0520 11:38 93 H 16 141/70 H 05 11:37 92 H 98 04/20/19 11:36 93 H 16 144/72 H 04/20/19 11:34 99 H 16 142/68 H 05 11:32 100 H 16 145/70 H 98 05 11:31 101 H 16 137/75 05 11:28 85 16 129/67 04/20/19 11:27 89 97 04/20/19 11:26 86 138/73 05 11:24 82 18 137/69 05 11:22 91 H 18 139/70 98 04/20/19 11:20 85 140/66 05 11:18 90 18 137/63 04/20/19 11:17 93 H 99 04/20/19 11:16 89 135/67 05 11:14 93 H 146/76 H 04/20/19 11:12 91 H 18 139/72 99 04/20/19 11:10 91 H 18 143/77 H 04/20/19 11:09 89 18 144/89 H 04/20/19 11:07 98 H 99 04/20/19 11:06 94 H 141/67 H 04/20/19 11:04 99 H 18 141/69 H 04/20/19 11:02 100 H 18 145/72 H 99 04/20/19 11:00 109 H 150/80 H 05 10:58 108 H 153/68 H 04/20/19 10:57 101 H 99 05 10:56 110 H 151/84 H 05 10:54 103 H 142/70 H 0520 10:52 103 H 142/68 H 98 05 10:50 98 H 18 130/65 0520 10:48 106 H 153/80 H 05/20/19 10:47 100 H 98 04/20/19 10:46 86 152/69 H 04/20/19 10:44 93 H 156/70 H 04/20/19 10:42 109 H 155/70 H 98 04/20/19 10:39 112 H 89 L 04/20/19 10:37 101 H 99 04/20/19 10:32 86 158/86 H 98 04/20/19 10:30 36.5 C 18 04/20/19 10:27 72 99 04/20/19 10:22 87 98 04/20/19 10:17 82 99 04/20/19 10:12 88 98 04/20/19 10:07 76 97 04/20/19 09:00 36.7 C 18 04/20/19 07:08 36.7 C 16 04/20/19 06:59 84 138/73 04/20/19 06:11 18 04/20/19 06:05 36.9 C 18 04/20/19 05:46 86 142/84 H 04/20/19 04:30 36.9 C 18 04/20/19 02:27 37.1 C 78 18 147/77 H 04/20/19 02:24 72 143/70 H Pain Intensity Bilateral Abdomen: Pain Intensity: 1 Notes Mental Status: alert / awake / arousable and participated in evaluation Nausea / Vomiting: adequately controlled Pain: adequately controlled Airway Patency, RR, SpO2: stable & adequate BP & HR: stable & adequate Hydration State: stable & adequate Neuraxial Anesthesia: was administered and sensory block is resolving Anesthetic Complications: no major complications apparent and Pt Satisfied with anesthetic care Epidural: Removed without complications and With tip intact Notes: The patient required several boluses of bupivicaine and fentanyl in her epidural to become comfortable. However, she was able to successfully deliver the baby vaginally as a . Since she had issues with her previous epidural, I discussed with the patient that she may have an anatomic issue affeting her epidural space and to discuss this with any future anesthesia provider.
[2019-04-20] MEDS ORDERED: miSOPROStol 200 MCG TAB ONE (20:31)
[2019-04-20] MEDS ORDERED: OXYTOCIN 30 UNITS/500 ML BAG IV PRN (20:53)
[2019-04-20] MEDS ORDERED: SUPERCREAM 0.870% 15 GM JAR EXT PRN (20:53)
[2019-04-20] MEDS ORDERED: METHYLERGONOVINE MALEATE 0.2 MG/ML AMP IM ONE (20:53)
[2019-04-20] MEDS ORDERED: BISACODYL 10 MG SUPP PR PRN (20:53)
[2019-04-20] MEDS ORDERED: OXYCODONE/ACETAMINOPHEN 5mg/325mg TAB PO PRN (20:53)
[2019-04-20] MEDS ORDERED: HYDROCORTISONE ACETATE 25 MG SUPP PR PRN (20:53)
[2019-04-20] MEDS ORDERED: DIPHTHERIA/TETANUS/PERTUSSIS 0.5 ML SYR/VIAL IM ONE (20:53)
[2019-04-20] MEDS ORDERED: BENZOCAINE 20% AER SPR 82.5 GM CAN EXT PRN (20:53)
[2019-04-20] MEDS ORDERED: miSOPROStol 200 MCG TAB PR ONE (20:53)
[2019-04-20] MEDS ORDERED: ACETAMINOPHEN 325 MG TAB PO PRN (20:53)
[2019-04-20] MEDS ORDERED: ACETAMINOPHEN W/CODEINE #3 1 TAB PO PRN (20:53)
[2019-04-20] MEDS: DOCUSATE SODIUM 100 MG CAP PO SCH (21:39)
[2019-04-20] MEDS: IBUPROFEN 600 MG TAB PO PRN (23:25)
--- NOTE | 2019-04-21 | History and Physical Report ---
REASON FOR ADMISSION: Spontaneous rupture of membranes at approximately 1 o'clock today at 39 weeks and 1 day. HISTORY OF PRESENT ILLNESS: The patient is a 33-year-old female 3, para 2-0-0-2, O positive, group B strep negative female who presents to labor and delivery with spontaneous rupture of membranes tonight. The patient had 1 spontaneous vaginal delivery in 2014 followed by a primary section in 2017 for what sounds like a variable deceleration and nonreassuring heart tones at that time. The patient was complete and pushing for not that long according to the patient. PAST MEDICAL HISTORY: Positive for x1. FAMILY HISTORY: Lung cancer. SOCIAL HISTORY: The patient is and denies smoking or alcohol use. ALLERGIES: No known drug allergies. MEDICATION: vitamins. SURGICAL HISTORY: x1, knee surgery, wisdom teeth. PHYSICAL EXAMINATION: HEENT: Within normal limits. LUNGS: Clear to auscultation. COR: Regular rate and rhythm. ABDOMEN: Soft, gravid. heart tone category 1. CERVICAL: Reveals cervix to be approximately 4-5, 70%, -2, vertex with grossly ruptured clear fluid. GBS is negative. ASSESSMENT: Term . PLAN: The patient was given informed consent including risks, benefits and alternatives to a repeat versus a trial of labor after . Because the patient had one vaginal delivery, she would be a good candidate for a second vaginal delivery. She consented to a vaginal delivery after and we will attempt a .
[2019-04-21] MEDS: IBUPROFEN 600 MG TAB PO PRN ×2 (04:31→16:33)
[2019-04-21 07:40] LABS: Hematocrit (blood only) 32.4 % (37-47); Hemoglobin 11.2 g/dL (12.0-16.0); Mean Corpuscular Hgb Conc 34.6 g/dL (32-36); Mean Corpuscular Volume 83.3 fL (80-100); Mean Platelet Volume 12.9 fL (7.4-10.4); Platelet Count 142 K/uL (130-400); RDW Coefficient of Variation 12.9 % (11.5-14.5); RDW Standard Deviation 38.7 fL (36.4-46.3); Red Blood Count 3.89 M/uL (4.2-5.4); White Blood Count 21.62 K/uL (4.8-10.8)
--- NOTE | 2019-04-21 07:58 | Delivery Summary ---
DATE OF OPERATION: 04/20/2019 INDICATION FOR PROCEDURE: This is a patient who was attempting a . She successfully delivered a live male in left occiput anterior presentation with a tight nuchal cord which was clamped, cut and reduced. Infant was delivered, placed on mother's abdomen. Weight and Apgars in the pediatric record. Cord blood was obtained and cord gases was obtained as well. Placenta was spontaneously delivered. Inspection of the placenta shows a normal gross to looking placenta with 3-vessel cord. Inspection of the perineum showed no laceration or tears. Baby and mother are doing well in recovery. All instruments were removed from the vagina including retractors, sponges and needles accounted for x2. ESTIMATED BLOOD LOSS: 700 mL. I attest to the content of the Intraoperative Record and any orders documented therein. Any exception s are noted below.
[2019-04-21] MEDS: PRENATAL VITAMIN 1 TAB PO SCH (07:59)
[2019-04-21] MEDS: DOCUSATE SODIUM 100 MG CAP PO SCH ×2 (08:00→20:29)
--- NOTE | 2019-04-21 08:19 | Obstetrical Progress Note ---
Date of Service April 21, 2019 Subjective doing well Physical Exam Constitutional: WD/WN, vitals as above comfortable abdomen soft and non- tender fundus firm no edema neg Braulio's for tent d/c in AM Results & Data Vital Signs (Past 12 Hours) Vital Signs Temp Pulse Pulse Resp BP BP Pulse Ox 04/21/19 07:50 37.2 C 88 18 131/79 98 04/21/19 04:05 36.9 C 97 H 16 124/80 98 04/20/19 23:05 37.6 C H 94 H 17 139/87 98 04/20/19 22:15 37.6 C H 106 H 18 149/95 H 04/20/19 21:41 93 H 148/65 H 04/20/19 21:26 96 H 146/75 H 04/20/19 21:11 90 152/70 H 04/20/19 20:42 82 163/70 H 04/20/19 20:26 150/78 H Laboratory Results Laboratory Results - last 24 hr 04/20/19 04/20/19 04/20/19 03:12 11:51 19:24 WBC RBC Hgb Hct MCV MCH MCHC RDW Std Deviation RDW Coeff of Erick Plt Count MPV Cord ABG pH 7.30 Cord ABG pCO2 55 Cord ABG pO2 21.0 Cord ABG HCO3 27 Cord ABG Base Excess -1.3 Cord ABG O2 Sat < 60.0 Cord VBG pH Cord VBG pCO2 Cord VBG pO2 Cord VBG HCO3 Cord VBG Base Excess Cord VBG O2 Sat Barometric Pressure 729.5 Blood Gas Comments HAWK Sodium 138 Potassium 3.6 Chloride 108 H Carbon Dioxide 22 Anion Gap 9.0 BUN 4 L Creatinine 0.57 L Est Cr Clr Drug Dosing 121.9 Est GFR ( Amer) 142.2 Est GFR (Non-Af Amer) 122.7 BUN/Creatinine Ratio 7.3 L Glucose 83 Calcium 8.8 Total Bilirubin 0.2 AST 18 ALT 11 L Alkaline Phosphatase 146 H Total Protein 6.2 L Albumin 2.5 L Globulin 3.7 Albumin/Globulin Ratio 0.7 L Blood Type O Positive Antibody Screen NEGATIVE 04/20/19 04/21/19 19:24 06:57 WBC 21.62 H RBC 3.89 L Hgb 11.2 L Hct 32.4 L MCV 83.3 MCH 28.8 MCHC 34.6 RDW Std Deviation 38.7 RDW Coeff of Erick 12.9 Plt Count 142 MPV 12.9 H Cord ABG pH Cord ABG pCO2 Cord ABG pO2 Cord ABG HCO3 Cord ABG Base Excess Cord ABG O2 Sat Cord VBG pH 7.41 Cord VBG pCO2 34 Cord VBG pO2 30 Cord VBG HCO3 21 Cord VBG Base Excess -2.7 Cord VBG O2 Sat 70.0 H Barometric Pressure 729.5 Blood Gas Comments HAWK Sodium Potassium Chloride Carbon Dioxide Anion Gap BUN Creatinine Est Cr Clr Drug Dosing Est GFR ( Amer) Est GFR (Non-Af Amer) BUN/Creatinine Ratio Glucose Calcium Total Bilirubin AST ALT Alkaline Phosphatase Total Protein Albumin Globulin Albumin/Globulin Ratio Blood Type Antibody Screen
[2019-04-21] MEDS ORDERED: BISACODYL 5 MG TABEC PO SCH (20:00)
[2019-04-22] MEDS: IBUPROFEN 600 MG TAB PO PRN (03:20)
[2019-04-22 07:59] LABS: Hemoglobin 10.4 g/dL (12.0-16.0)
[2019-04-22] MEDS: DOCUSATE SODIUM 100 MG CAP PO SCH (09:43)
[2019-04-22] MEDS: PRENATAL VITAMIN 1 TAB PO SCH (09:43)
--- NOTE | 2019-04-22 10:11 | Obstetrical Progress Note ---
Date of Service April 22, 2019 Physical Exam Physical Exam: abdomen soft and non tender vaginal bleeding scant to moderate no calf tenderness ambulating well Results & Data Vital Signs (Past 12 Hours) Vital Signs Temp Pulse Pulse Resp BP Pulse Ox 04/22/19 08:29 37.0 C 81 16 122/81 98 04/22/19 00:15 36.5 C 83 18 127/81
== END 2019-04-22 11:52 | disposition home or self-care (01) | DRG 807 ==
LOC: OPB 02:07 → 4S1 02:11 → 4S2 22:06

== ENCOUNTER 2021-10-19 07:06 | Inpatient (IN) ==
--- NOTE | 2021-10-13 12:04 | PAT Medication Instructions ---
Medication Instructions Date of Service October 13, 2021 Home Medications Medication Instructions Recorded acetone (urine) test (Ketone Urine #50 ea 09/01/21 Test) blood sugar diagnostic (OneTouch #150 ea 09/01/21 Verio test strips) blood-glucose meter (OneTouch #1 ea 09/01/21 Verio Flex meter) lancets 33 gauge (OneTouch Delica #150 ea 09/01/21 Plus Lancet) vitamins-iron fumarate 27 mg iron-folic acid 0.8 mg tablet ( Vitamin) 2 tab PO QAM DO NOT take the morning of surgery vitamins-iron fumarate 27 mg iron-folic acid 0.8 mg tablet ( Vitamin) 2 tab PO QAM NOTHING TO EAT OR DRINK AFTER MIDNIGHT Other Notes If you have any questions please call us at [phone] or [phone] or [phone] or [phone]
--- NOTE | 2021-10-17 09:51 | Anesthesiology Consultation ---
Date of Service October 17, 2021 Assessment & Plan (1) Encounter for pre-operative examination: - anesthesia record 04/20/2019: "The patient required several boluses of bupivicaine and fentanyl in her epidural to become comfortable. However, she was able to successfully deliver the baby vaginally as a . Since she had issues with her previous epidural, I discussed with the patient that she may have an anatomic issue affeting [sic] her epidural space and to discuss this with any future anesthesia provider." - gestational DM: Will leave to anesthesiologist discretion if BSG needed am DOS. - COVID screening: Per assessment on 10/17/2021: Travel screen negative, no known COVID-19 positive contacts or current COVID-19 related symptoms. Surgeon arranging preop COVID testing, to be completed today at PAT appointment. Awaiting results. Chart Review Chart Review: Acceptable Risk for Surgery and Patient seen in Pre Admission Testing Teaching & Discussion Pre-Anesthesia Teaching/Discussion Notes: Instructed NPO after midnight before surgery, except medications with 15 cc of water. Medication instructions provided according to the [facility] guidelines. History Surgery Operation Date: 10/19/21 09:10 Proposed Procedures p Repeat Section in LD - Favian Plascencia MD Height/Weight Height: 4 ft 10 in Weight: 78.1 kg Allergies Allergy/AdvReac Type Severity Reaction Status Date / Time No Known Allergies Allergy Verified 04/10/19 11:32 Medications Home Medications Medication Instructions Recorded Confirmed Last Taken vitamins-iron fumarate 27 2 tab PO QAM 03/14/19 10/13/21 04/19/19 12:00 mg iron-folic acid 0.8 mg tablet ( Vitamin) acetone (urine) test (Ketone Urine #50 ea 09/01/21 09/01/21 Unknown Test) blood sugar diagnostic (OneTouch #150 ea 09/01/21 09/01/21 Unknown Verio test strips) blood-glucose meter (OneTouch #1 ea 09/01/21 09/01/21 Unknown Verio Flex meter) lancets 33 gauge (OneTouch Delica #150 ea 09/01/21 09/01/21 Unknown Plus Lancet) Past Medical History Medical History (Updated 10/17/21 @ 10:31 by Denise Howard PA-C) Gestational diabetes Diet controlled History of high blood pressure With 2017 , induced at 38 wks, denies h/o pre-eclampsia Nausea and vomiting after administration of anesthetic agent after 2017 C/S Vaginal after () 04/20/2019 anesthesia record: "The patient required several boluses of bupivicaine and fentanyl in her epidural to become comfortable. However, she was able to successfully deliver the baby vaginally as a . Since she had issues with her previous epidural, I discussed with the patient that she may have an anatomic issue affeting [sic] her epidural space and to discuss this with any future anesthesia provider." Patient denies h/o stroke, seizures, heart attack, heart failure, blood clots or blood transfusions. Exercise / Class Metabolic Activity II 4-5 Yardwork/Stairs/Walk up hill (denies CP or SOB with 1 FOS) Past Family History Family History Mother Family history of lung cancer Past Surgical History Surgical History H/O knee surgery 2004 - ACL left Hx of section 2017: per anesthesia consultation: "HAD LABOR EPIDURAL IN PLACE, NONREA SSURING FHTS, CONVERTED TO C/S, EPIDURAL BOLUSED." [place] teeth extracted 2008 Past Anesthesia History No Hx of Anesthesia Complications and No Family Hx of Anesthesia Complications History of PONV No Hx of Motion Sickness and History of PONV Social History Smoking Status: Never smoker Do You Dip or Chew Tobacco: No Hx Alcohol Use: No Hx Substance Use: No substance use type: does not use Review of Systems Patient denies chest pain, shortness of breath, dyspnea on exertion, snoring, witnessed apneas, reflux, fever, chills, cough, wheezing, or palpitations. Physical Exam Vital Signs Vitals BP 134/82 P 94 TEMP 98.5 SP02 96% on RA RESP 16 Physical Full cervical extension range of motion without pain Full TMJ range of motion TMD 3.5 finger breaths Mallampati Score 1 Dentition: intact, several caps back teeth upper and lower bilat Lungs: normal respiratory effort. Clear throughout to auscultation, no adventitious breath sounds Cardiac: regular rate and rhythm, no murmurs noted Carotid arteries: negative bruit bilat Extremities: no distal extremity edema Lab Results Anesthesia Preop Results Results Anesthesia Widget: WBC 8.20 K/uL (4.8-10.8) 10/17/21 Hgb 12.8 g/dL (12.0-16.0) 10/17/21 Hct 37.7 % (37-47) 10/17/21 Plt 141 K/uL (130-400) 10/17/21 Na 134 mmol/L (136-145) L 10/17/21 K 3.9 mmol/L (3.5-5.1) 10/17/21 Cl 106 mmol/L (98-107) 10/17/21 CO2 21 mmol/L (21-32) 10/17/21 BUN 6 mg/dl (7-18) L 10/17/21 Creat 0.54 mg/dl (0.6-1.2) L 10/17/21 Glucose Level 74 mg/dl (70-99) 10/17/21 PT 9.4 Seconds (9.0-12.0) 10/17/21 PTT 24.8 Seconds (21.0-31.0) 10/17/21 INR 0.9 (0.9-1.1) 10/17/21 Blood Type O Positive 10/17/21 Antibody Screen NEGATIVE 10/17/21
--- NOTE | 2021-10-17 09:57 | Anesthesiology Consultation ---
Date of Service October 17, 2021 Assessment & Plan (1) Encounter for pre-operative examination: Chart Review 04/20/19= History Surgery Operation Date: 10/19/21 09:10 Proposed Procedures p Repeat Section in LD - Favian Plascencia MD Height/Weight Height: 4 ft 10 in Weight: 77.564 kg Allergies Allergy/AdvReac Type Severity Reaction Status Date / Time No Known Allergies Allergy Verified 04/10/19 11:32 Medications Home Medications Medication Instructions Recorded Confirmed Last Taken vitamins-iron fumarate 27 2 tab PO QAM 03/14/19 10/13/21 04/19/19 12:00 mg iron-folic acid 0.8 mg tablet ( Vitamin) acetone (urine) test (Ketone Urine #50 ea 09/01/21 09/01/21 Unknown Test) blood sugar diagnostic (OneTouch #150 ea 09/01/21 09/01/21 Unknown Verio test strips) blood-glucose meter (OneTouch #1 ea 09/01/21 09/01/21 Unknown Verio Flex meter) lancets 33 gauge (OneTouch Delica #150 ea 09/01/21 09/01/21 Unknown Plus Lancet) Past Medical History Medical History (Updated 10/17/21 @ 09:55 by Rosana Hines PA-C) Gestational diabetes Diet controlled History of high blood pressure With previous , induced at 38 wks Nausea and vomiting after administration of anesthetic agent after previous C/S Vaginal after () 04/20/2019 anesthesia record: "The patient required several boluses of bupivicaine and fentanyl in her epidural to become comfortable. However, she was able to successfully deliver the baby vaginally as a . Since she had issues with her previous epidural, I discussed with the patient that she may have an anatomic issue affeting [sic] her epidural space and to discuss this with any future anesthesia provider." Past Family History Family History Mother Family history of lung cancer Past Surgical History Surgical History H/O knee surgery 2005 - ACL left Hx of section 2017: per anesthesia consultation: "HAD LABOR EPIDURAL IN PLACE, NONREASSURING FHTS, CONVERTED TO C/S, EPIDURAL BOLUSED." Avinger teeth extracted 2009 Social History Smoking Status: Never smoker Do You Dip or Chew Tobacco: No Hx Alcohol Use: No Hx Substance Use: No substance use type: does not use
[~2021-10-19 07:06] MED LIST changes: +CITRIC ACID/SODIUM CITRATE 15 ML UDC PO SCH; +LACTATED RINGER'S 1,000 ML IV SCH; -PRENTAB26 PO; +cefOXitin 2,000 MG in DEXTROSE 5% 50 ML IV SCH
[2021-10-19] MEDS ORDERED: fentaNYL citrate 100 MCG/2 ML VIAL ONE (08:46)
[2021-10-19] MEDS ORDERED: MoRPHine SULFATE PF 1 MG/ML 10 ML AMP/VIAL ONE (08:46)
[2021-10-19] MEDS ORDERED: ONDANSETRON INJ 2 MG/ML 2 ML VIAL ONE (08:50)
[2021-10-19] MEDS ORDERED: OXYTOCIN 10 UNITS/ML VIAL ONE (08:50)
--- NOTE | 2021-10-19 08:50 | History & Physical Bridge Note ---
Date of Service October 19, 2021 History & Physical Bridge Note I have examined the patient, reviewed the History & Physical and in the interval since the performance of the History & Physical I have noted the following changes of clinical significance: no changes noted
[2021-10-19] MEDS ORDERED: SODIUM CHLORIDE 0.9% 250 ML IV PRN (10:07)
[2021-10-19] MEDS ORDERED: PROMETHAZINE HCL 6.25 MG in SODIUM CHLORIDE 0.9% 50 ML IV PRN (10:30)
[2021-10-19] MEDS ORDERED: NO NARCOTICS OR SEDATIVES SCH (10:30)
[2021-10-19] MEDS ORDERED: LACTATED RINGER'S 500 ML IV PRN (10:30)
[2021-10-19] MEDS ORDERED: NALOXONE HCL 1 MG in SODIUM CHLORIDE 0.9% 1000ML 1,000 ML IV PRN (10:30)
[2021-10-19] MEDS ORDERED: diphenhydrAMINE 50 MG/ML VIAL IV PRN (10:30)
[2021-10-19] MEDS ORDERED: DC INTRASPINAL MORPHINE SCH (10:30)
[2021-10-19] MEDS ORDERED: HYDROmorphone INJ 0.5 MG/0.5 ML SYR IV PRN (10:30)
[2021-10-19] MEDS ORDERED: MoRPHine SULFATE PF 1 MG/ML 10 ML AMP/VIAL INT SPINAL ONE (10:30)
[2021-10-19] MEDS ORDERED: NALOXONE HCL 0.08 MG in SYRINGE 1.8 ML IV PRN (10:30)
[2021-10-19] MEDS ORDERED: NALOXONE HCL 0.4 MG/1 ML VIAL/CARP IV PRN (10:30)
[2021-10-19] MEDS ORDERED: ONDANSETRON INJ 2 MG/ML 2 ML VIAL IV PRN (10:30)
[2021-10-19] MEDS ORDERED: SODIUM CHLORIDE 0.9% 1000ML 1,000 ML IV SCH (10:30)
[2021-10-19] MEDS ORDERED: MoRPHine SULFATE 2 MG/ML CARP IV PRN (10:30)
[2021-10-19] MEDS ORDERED: NALBUPHINE HCL INJ 10 MG/ML AMP IV PRN (10:30)
[2021-10-19] MEDS ORDERED: ePHEDrine sulfate 50 MG/ML AMP IV PRN (10:30)
[2021-10-19] MEDS ORDERED: ePHEDrine sulfate 50 MG/ML SYR ONE (10:31)
[2021-10-19] MEDS ORDERED: ARISTA ABSORBABLE HEMOSTAT 3GM TOP ONE (11:16)
[2021-10-19] MEDS ORDERED: OXYTOCIN 10 UNITS/ML VIAL IM ONE (11:16)
--- NOTE | 2021-10-19 11:27 | Post Operative Brief Note ---
Immediate Post Op Note v1 Date of Surgery October 19, 2021 Pre & Post Diagnosis Operation Date: 10/19/21 09:10 Pre-Op Diagnosis: SECTION Post-Op Diagnosis: SECTION I identified the patient and participated in the time-out.: Yes Procedure Operation Date: 10/19/21 09:10 Actual Procedures p Repeat Section with delivery of live male child at 1043 in OR 3 - Favian Plascencia MD Surgeon Favian Plascencia MD Shank Piece Tacker Dr Solorzano Estimated Blood Loss 500 Findings Consistent with Post-Op Diagnosis Drains Man Catheter Anesthesia Type Spinal Disposition Disposition: Recovery Room
[2021-10-19] MEDS ORDERED: MAGNESIUM HYDROXIDE SUSP 30 ML UDC PO PRN (11:28)
[2021-10-19] MEDS ORDERED: BENZOCAINE 20% AER SPR 82.5 GM CAN EXT PRN (11:28)
[2021-10-19] MEDS ORDERED: SENNA 8.6 MG TAB PO PRN (11:28)
[2021-10-19] MEDS ORDERED: DIPHTHERIA/TETANUS/PERTUSSIS 0.5 ML SYR/VIAL IM ONE (11:28)
[2021-10-19] MEDS ORDERED: HYDROCORTISONE ACETATE 25 MG SUPP PR PRN (11:28)
[2021-10-19] MEDS ORDERED: SUPERCREAM 0.870% 15 GM JAR EXT PRN (11:28)
[2021-10-19] MEDS ORDERED: LACTATED RINGER'S 1,000 ML IV SCH (11:30)
[2021-10-19] MEDS ORDERED: OXYTOCIN 20 UNITS in LACTATED RINGER'S 20 ML IV SCH (11:30)
--- NOTE | 2021-10-19 11:49 | Anesthesiology Progress Note ---
Date of Service October 19, 2021 Anesthesia Post Procedure Vital Signs Vital Signs: Temp Pulse Resp BP Pulse Ox 10/19/21 11:46 77 153/84 H 10/19/21 11:45 83 98 10/19/21 11:40 96 H 100 10/19/21 11:35 83 147/76 H 99 10/19/21 07:34 83 139/81 10/19/21 07:27 37.2 C 83 18 139/81 Transfer of Care Handoff Completed per policy Notes Mental Status: alert / awake / arousable and participated in evaluation Patient Amnestic to Procedure: No Nausea / Vomiting: adequately controlled Pain: adequately controlled Airway Patency, RR, SpO2: stable & adequate BP & HR: stable & adequate Hydration State: stable & adequate Neuraxial Anesthesia: was administered and sensory block is resolving Anesthetic Complications: no major complications apparent and Pt Satisfied with anesthetic care
--- NOTE | 2021-10-19 12:37 | Operative Report (OR) ---
DATE OF SERVICE: 10/19/2021 INDICATIONS FOR SURGERY: Gestational diabetes, suspected diabetic effects on weight gain, intr auterine at 39 weeks. POSTOPERATIVE DIAGNOSES: Gestational diabetes, suspected diabetic effects on weight gain, intr auterine at 39 weeks, delivered over 9 pound male. SURGEON: Natan Plascencia MD. TRANSPORT COMPANY MANAGER: Rocio Greenberg MD. ESTIMATED BLOOD LOSS: 500 mL. ANESTHESIA: Spinal. OPERATIVE FINDINGS AND PROCEDURE: The patient was brought to the OR table, correctly identified by a rmband and conversation. Spinal anesthesia was administered. Then, the Man catheter was inserted aseptically in the bladder, connected to gravity drainage. Lower abdomen was painted with an alcohol -based sterilizing solution, it was allowed to dry for 3 minutes and draped in the usual sterile [facility] ion. The adequacy of the anesthesia was tested and found to be good. The patient identification was performed. Then, an incision was made through a previous Pfannenstiel scar and was carried down to the anterior fascia by sharp dissection. Hemostasis was secured by electrocauterization. Fascia was incised late rally and then from the recti muscle by blunt and sharp dissection. The recti muscles were in the midline. Peritoneum was carefully raised and entered. There were a lot of filmy a dhesions to the anterior abdominal wall and the anterior portion of the uterus. These were taken adrianne n sharply and bluntly. The lower uterine segment was exposed. We had to take down the filmy adhesio ns to expose the lower uterine segment. Lower uterine segment was thick. It was intact. There were no problems with the previous scar. We scored the lower uterine segment above the vesicouterine fold and entered bluntly with scissors. Clear amniotic fluid was seen at this time, the rework operator's hand was inserted in the uterus. A vectis retractor was applied to the head, and with fundal pressure, the 's head was delivered through the abdomen. Infant was suctioned through the mouth and the nose. Then, the body was delivered. T he was obviously large with diabetic changes in the weight distribution. Cord blood was strip ped and then cord was cut and infant was handed off to the cook fish eggs who was scrubbed and present at the time of delivery. Cord blood was taken. The placenta was removed manually. Uterus, tubes, and ovaries were brought out through the incision. Uterine cavity was cleansed with a clean sponge. 10 units of Pitocin was injected into the myometrium. Myometrium was approximated th en actually in 3 layers. The muscular layer was approximated with continuous heavy duty chromic. Th en, a second layer of Vicryl was approximated over this and then interrupted [id number] sutures of Vicryl was used to further approximate the fascial layer. Hemostasis at this time was excellent. We took off all the adhesions of the omentum to the anterior abdominal wall. We used Lalito on the lower uterine segment and bladder area to control all oozing. We did a careful anatomical approximation of the anterior abdominal wall. Peritoneum was closed as f ar down as we could identify the peritoneum. Then, the recti muscles were approximated with interrup maureen [id number] sutures of chromic catgut. Fascia was closed with continuous interlocking suture of Vicryl on each side tied in the midline. Subcutaneous was approximated with a running plain. Th e skin edges were approximated with staple clips. The patient tolerated the procedure well and left the OR in good condition. Job ID: [id number]
[2021-10-19] MEDS: KETOROLAC 30 MG/ML VIAL IV PRN ×2 (13:51→17:02)
[2021-10-19] MEDS ORDERED: OXYTOCIN 20 UNITS in LACTATED RINGER'S 1,000 ML IV SCH (14:30)
[2021-10-19] MEDS: SIMETHICONE 80 MG CHEW PO SCH ×2 (17:02→20:59)
[2021-10-19] MEDS ORDERED: LACTATED RINGER'S 1,000 ML IV ONE (18:43)
[2021-10-19] MEDS: DOCUSATE SODIUM 100 MG CAP PO SCH (20:58)
[2021-10-20] MEDS: KETOROLAC 30 MG/ML VIAL IV PRN (00:04)
[2021-10-20] MEDS ORDERED: PROMETHAZINE HCL 25 MG in SODIUM CHLORIDE 0.9% 50 ML IV PRN (04:30)
[2021-10-20] MEDS ORDERED: ONDANSETRON INJ 2 MG/ML 2 ML VIAL IV PRN (04:30)
[2021-10-20] MEDS ORDERED: diphenhydrAMINE 50 MG/ML VIAL IV PRN (04:30)
[2021-10-20] MEDS ORDERED: KETOROLAC 30 MG/ML VIAL IV PRN (04:30)
[2021-10-20] MEDS ORDERED: diphenhydrAMINE Capsule 25 MG CAP PO PRN (04:30)
[2021-10-20] MEDS ORDERED: MEPERIDINE HCL 50 MG/ML CARP IV PRN (04:30)
[2021-10-20] MEDS ORDERED: ZOLPIDEM TARTRATE 5 MG TAB PO PRN (04:30)
[2021-10-20] MEDS: IBUPROFEN 600 MG TAB PO PRN ×3 (05:46→18:38)
[2021-10-20] MEDS: oxyCODONE/ACETAMINOPHEN 5mg/325mg TAB PO PRN ×3 (05:47→18:37)
[2021-10-20 06:50] LABS: Hematocrit (blood only) 27.3 % (37-47); Hemoglobin 9.3 g/dL (12.0-16.0); Mean Corpuscular Hgb Conc 34.1 g/dL (32-36); Mean Platelet Volume 12.5 fL (7.4-10.4); Platelet Count 111 K/uL (130-400); RDW Coefficient of Variation 13.2 % (11.5-14.5); RDW Standard Deviation 40.4 fL (36.4-46.3); Red Blood Count 3.21 M/uL (4.2-5.4); White Blood Count 10.03 K/uL (4.8-10.8)
[2021-10-20 06:53] LABS: Basophils # (auto) 0.01 K/uL (0-0.2); Basophils % (auto) 0.1 %; Eosinophils # (auto) 0.06 K/uL (0-0.5); Eosinophils % (auto) 0.6 %; Immature Granulocytes # (auto) 0.02 K/uL (0.00-0.02); Immature Granulocytes % (auto) 0.2 %; Lymphocytes # (auto) 1.37 K/uL (1.2-3.4); Lymphocytes % (auto) 13.7 %; Monocytes # (auto) 0.75 K/uL (0.11-0.59); Monocytes % (auto) 7.5 %; Neutrophils # (auto) 7.82 K/uL (1.4-6.5); Neutrophils % (auto) 77.9 %; RBC Morphology Unremarkable
[2021-10-20] MEDS: FERROUS SULFATE 325 MG TAB PO SCH (08:59)
[2021-10-20] MEDS: SIMETHICONE 80 MG CHEW PO SCH ×4 (08:59→19:32)
[2021-10-20] MEDS: PRENATAL VITAMIN 1 TAB PO SCH (08:59)
[2021-10-20] MEDS: DOCUSATE SODIUM 100 MG CAP PO SCH ×2 (08:59→19:32)
--- NOTE | 2021-10-20 09:10 | Obstetrical Progress Note ---
Date of Service October 20, 2021 Assessment & Plan Admission and Anticipated Discharge Date Admission Date: October 19, 2021 Subjective abdomen soft and non tender bowel sounds present incision is clean and dry bandage removed no calf tenderness ambulating well vaginal bleeding scant hgb 9.3 Results & Data ([facility]) Vital Signs (Past 12 Hours) Vital Signs Temp Pulse Resp BP Pulse Ox 10/20/21 07:35 36.6 C 83 14 127/85 98 10/20/21 04:25 36.7 C 97 H 20 128/81 96 10/20/21 03:20 18 96 10/20/21 02:30 20 96 10/20/21 01:53 16 97 10/20/21 01:26 18 98 10/20/21 00:00 20 98 10/19/21 23:55 36.8 C 96 H 20 124/77 98 10/19/21 22:09 18 98 10/19/21 21:30 20 99
[2021-10-20] MEDS ORDERED: bisacodyL 5 MG TABEC PO SCH (20:00)
[2021-10-21] MEDS: IBUPROFEN 600 MG TAB PO PRN ×2 (00:48→08:05)
[2021-10-21] MEDS: oxyCODONE/ACETAMINOPHEN 5mg/325mg TAB PO PRN ×2 (00:48→08:06)
[2021-10-21 06:52] LABS: Hematocrit (blood only) 28.6 % (37-47); Hemoglobin 9.5 g/dL (12.0-16.0)
--- NOTE | 2021-10-21 07:28 | Obstetrical Progress Note ---
Date of Service October 21, 2021 Assessment & Plan Admission and Anticipated Discharge Date Admission Date: October 19, 2021 Subjective abdomen soft and non tender passing flatus incision is clean and dry ambulating well vaginal bleeding scant hgb 9.5 Results & Data ([facility]) Vital Signs (Past 12 Hours) Vital Signs Temp Pulse Resp BP Pulse Ox 10/21/21 00:00 36.8 C 100 H 16 124/78 97 10/20/21 20:00 37.1 C 108 H 16 136/86 99
--- NOTE | 2021-10-21 07:51 | Discharge Summary (DS) ---
HOSPITAL COURSE: She is a 5, para 4, who has had vaginal , for distress , successful , and now a primary section for gestational diabetes and macrosomia. She i s followed in our office for care and delivery. She developed gestational diabetes. She wa s controlled with insulin monitor, but ultrasound exams showed that the abdominal circumference was more than 2 weeks ahead of the head circumference indicating a diabetic disposition of weight in the fetus, also estimated weight was high. Her previous largest vaginal delivery was 7 pounds 2 oun joel at 39 weeks. She was taken to the OR with a diagnosis of macrosomia and gestational diabetes. S he underwent repeat low segment section, delivered a 9 pound 5 ounce male. At the time of C -sections, there were anterior adhesions to the abdominal wall; however, the integrity of the uterus was good. There was no thin lower uterine segment. Postoperatively, she did well. Her preoperative hemoglobin was 12.8 and at the time of discharge, her hemoglobin was 9.5. Also at the time of disch arge, she was ambulating well, eating well. Her anemia had stabilized and actually her hemoglobin leyva d started to come up. Vaginal bleeding was scant. Incision was clean and dry. She was given prescr iptions for Percocet and Motrin for pain control and told to call the office if she had any problems and return in a week for removal of griffin. Job ID: [id number]
[2021-10-21] MEDS: SIMETHICONE 80 MG CHEW PO SCH ×2 (08:05→13:45)
[2021-10-21] MEDS: DOCUSATE SODIUM 100 MG CAP PO SCH (08:05)
[2021-10-21] MEDS: PRENATAL VITAMIN 1 TAB PO SCH (08:05)
[2021-10-21] MEDS: FERROUS SULFATE 325 MG TAB PO SCH (08:05)
[2021-10-21] MEDS ORDERED: bisacodyL 10 MG SUPP PR PRN (11:28)
== END 2021-10-21 13:20 | disposition home or self-care (01) | DRG 788 ==
LOC: 4S1 07:06 → EDSTATUS 09:20 → 4S2 14:39